=== PATIENT | female | born 1945 | race Caucasian/White ===

== ENCOUNTER 2018-02-10 10:22 | Outpatient (CLI) | payer MEDICARE, OTHER | END 2018-02-10 10:23 | disposition critical access hospital (66) | LOC: EMS 10:22 | PROVIDERS: ATTEND Surgery | DX: H53.8 Other visual disturbances (principal); R20.2 Paresthesia of skin | CPT/HCPCS: A0425; A0429 ==

== ENCOUNTER 2018-02-10 10:36 | Emergency (ER) | payer MEDICARE, OTHER ==
--- NOTE | 2018-02-10 11:18 | CT Report ---
Procedure Date: 02/10/2018 Accession Number: [id number] / [id number] Procedure: CT - Head W/O Stroke Protocol CPT Code: FULL RESULT: EXAM: CT HEAD EXAM DATE: 02/10/2018 11:06 AM. CLINICAL HISTORY: Right facial droop. COMPARISON: None. TECHNIQUE: Multiaxial CT images were obtained from the foramen magnum to the vertex. Reformats: Coronal IV contrast: None. In accordance with CT protocol optimization, one or more of the following dose reduction techniques were utilized for this exam: automated exposure control, adjustment of mA and/or KV based on patient size, or use of iterative reconstructive technique. FINDINGS: Parenchyma: No intraparenchymal hemorrhage. No evidence of mass, midline shift, or CT findings of acute infarction. Reeves-white differentiation is distinct. Extraaxial Spaces: Normal for age. No subdural or epidural collections identified. Ventricles: Normal in size and position. Sinuses and Orbits: Imaged paranasal sinuses, orbits, and mastoids show no significant abnormality. Bones: No evidence of fracture or calvarial defect. Other: None. IMPRESSION: Normal head CT. No intracranial hemorrhage, CT evidence of acute infarct, mass effect, or other acute abnormality. RADIA The above findings were discussed with Vaurn Mcbride by Dr. Rasheed Blue at 11:17 hrs on 02/10/18.
[2018-02-10 11:32] LABS: BASOPHILS % (AUTO) 0.2 %; EOSINOPHILS # (AUTO) 0.1 10^3/uL (0.0-0.7); HGB - HEMOGLOBIN 13.9 g/dL (12.0-16.0); LYMPHOCYTES # (AUTO) 1.5 10^3/uL (1.5-3.5); LYMPHOCYTES % (AUTO) 33.4 %; MEAN CORPUSCULAR HEMOGLOBIN 28.1 pg (27.0-31.0); MEAN CORPUSCULAR HGB CONC 33.9 g/dL (32.0-36.0); MEAN CORPUSCULAR VOLUME 82.9 fL (81.0-99.0); MEAN PLATELET VOLUME 9.1 fL (7.9-10.8); MONOCYTES # (AUTO) 0.5 10^3/uL (0.0-1.0); MONOCYTES % (AUTO) 11.1 %; NEUTROPHILS # (AUTO) 2.3 10^3/uL (1.5-6.6); NEUTROPHILS % (AUTO) 52.3 %; PLT - PLATELET COUNT 180 10^3/uL (130-450); RED BLOOD COUNT 4.93 10^6/uL (4.20-5.40); RED CELL DISTRIBUTION WIDTH 14.6 % (12.0-15.0); WHITE BLOOD COUNT 4.5 x10^3/uL (4.8-10.8)
[2018-02-10 11:45] LABS: ALBUMIN 3.8 g/dL (3.2-5.5); ALBUMIN/GLOBULIN RATIO 1.1 (1.0-2.2); BILIRUBIN,TOTAL 0.4 mg/dL (0.2-1.0); CALCIUM 9.1 mg/dL (8.5-10.3); CREATININE 0.7 mg/dL (0.4-1.0); TOTAL PROTEIN 7.2 g/dL (6.7-8.2)
--- NOTE | 2018-02-10 12:15 | ED Physician Documentation ---
PD HPI FOCAL NEURO - Stated complaint Stated Complaint: POSS CVA - Chief complaint Chief Complaint: Neuro - History obtained from History obtained from: Patient, Family - History of Present Illness Timing - onset: How many hours ago (< 1 hr.) Timing - duration: Minutes (lasted about 10 minutes.) Timing - details: Now resolved Severity of deficit: Mild Weakness: Face, Right Associated symptoms: No: Headache, Nausea / vomiting, Fever Baseline status: positive: A&OX3, ambulatory, indep Similar symptoms before: Has not had sx before - Treatment prior to arrival Treatment prior to arrival: The patient is a 72-year-old female who presents after she experienced droopiness of her right eye less than one hour prior to arrival, and lasting for about 10 minutes. She reports associated blurry vision. She felt "off" today prior to the onset of her symptoms. She denies any associated headache, fever, chest pain, shortness of breath, nausea or vomiting. She did feel generally weak. She denies history of similar symptoms in the past. Until 6 months ago she was treated for hypertension with Benicar 20 mg daily. The medication was stopped because of episodes with low blood pressure,and she currently does not take any medications. She is currently visiting from [place]. Her daughter lives on [facility]. Review of Systems Constitutional: denies: Fever, Myalgias Eyes: reports: Other (Transient blurriness of vision, with droopy right eye.) Ears: denies: Tinnitus/ringing Nose: denies: Congestion Throat: denies: Sore throat Cardiac: denies: Chest pain / pressure, Palpitations Respiratory: denies: Dyspnea, Cough GI: denies: Abdominal Pain, Nausea, Vomiting : denies: Dysuria Skin: denies: Rash Musculoskeletal: denies: Neck pain, Extremity swelling Neurologic: reports: Focal weakness (droopiness of right eye transiently.). denies: Numbness, Difficulty speaking, Headache PD PAST MEDICAL HISTORY - Past Medical History Cardiovascular: Hypertension Respiratory: Sleep apnea Psych: Anxiety, Panic attacks - Present Medications Home Medications: Ambulatory Orders Medication Instructions Recorded Confirmed Olmesartan Medoxomil [Benicar] 10 mg PO DAILY #60 tablet 02/10/18 - Allergies Allergies/Adverse Reactions: Allergies Allergy/AdvReac Type Severity Reaction Status Date / Time aspirin Allergy Edema Verified 02/10/18 10:43 Penicillins Allergy Hives Verified 02/10/18 10:43 - Social History Does the pt smoke?: No Smoking Status: Never smoker Does the pt drink ETOH?: No Does the pt have substance abuse?: No Additional Social History: Visiting here from [place]. 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, No motor deficit, No sensory deficit, Normal speech Eye Opening: Spontaneous Motor: Obeys Commands Verbal: Oriented GCS Score: 15 NIHSS - Level of Consciousness Level of consciousness: (0) Alert, Keenly responsive LOC Questions: (0) Answers both Q's correct LOC Commands: (0) Performs both correctly - Gaze Best Gaze: (0) Normal - Visual Visual: (0) No loss - Facial Palsy Facial Palsy: (0) Normal, symmetrical movement - Motor Arms (both separate) Motor Arm (right): (0) No drift Motor Arm (left): (0) No drift - Motor Legs (both separate) Motor Leg (right): (0) No drift Motor Leg (left): (0) No drift - Limb Ataxia Limb Ataxia: (0) Absent - Sensory Sensory: (0) Normal - Best Language Best Language: (0) No aphasia - Dysarthria Dysarthria: (0) Normal - Extinction and Inattention (formally neg Extinction and inattention: (0) No abnormality - Total Score/Results Total Score/Result: 0 Results - Vitals Vitals: Oxygen O2 Source Room air - EKG (time done) 11:16 Rate: Rate (enter#) (63) Rhythm: NSR [place]: Normal Intervals: Normal [place] QRS: Normal Ischemia: Normal ST segments Computer interpretation: Agree with computer - Labs Labs: Laboratory Tests 02/10/18 02/10/18 02/10/18 11:20 11:20 11:20 WBC 4.5 L RBC 4.93 Hgb 13.9 Hct 40.9 MCV 82.9 MCH 28.1 MCHC 33.9 RDW 14.6 Plt Count 180 MPV 9.1 Neut # (Auto) 2.3 Lymph # (Auto) 1.5 [place] # (Auto) 0.5 Eos # (Auto) 0.1 Baso # (Auto) 0.0 Absolute Nucleated RBC 0.00 Nucleated RBC % 0.0 Sodium 139 Potassium 4.1 Chloride 106 Carbon Dioxide 27 Anion Gap 6.0 BUN 19 Creatinine 0.7 Estimated GFR (MDRD) 83 L Glucose 110 H Calcium 9.1 Total Bilirubin 0.4 AST 18 ALT 18 Alkaline Phosphatase 66 Troponin I < 0.04 Total Protein 7.2 Albumin 3.8 Globulin 3.4 Albumin/Globulin Ratio 1.1 Lipase 27 - Rads (name of study) Head CT stroke protocol Radiology: Prelim report reviewed, EMP read contemporaneously, See rad report ( Normal head CT) carotid duplex Radiology: Prelim report reviewed, See rad report (Minimal to mild bilateral carotid artery plaquing. In the right carotid artery there are no elevated carotid artery velocities to suggest hemodynamically significant stenosis. In the left carotid artery there are no elevated carotid artery velocities to suggest hemodynamically significant stenosis. Normal antegrade flow is present in bilateral vertebral arteries.) PD MEDICAL DECISION MAKING - ED course Complexity details: reviewed results, re-evaluated patient, considered differential, d/w patient, d/w family ED course: The patient's presentation is consistent with brief transient ischemic attack, although that cannot be certain because her neurologic exam was completely normal at the time of her arrival in the emergency department. Her elevated blood pressure, which was 216 systolic when the paramedics first checked it, is consistent with TIA. However the transient visual blurring and right eye droopiness may have been caused by hypertensive urgency. Evaluation in the emergency department included head CT which was normal, followed by carotid duplex scan, which revealed no significant carotid stenoses. Her CBC and chemistry panel were unremarkable, and her EKG was normal. The patient has an allergy to aspirin, so aspirin was not administered. Her blood pressure improved while in the emergency department, and she remained asymptomatic. She is being discharged with prescription for Benicar at half the dosage she was previously prescribed. I discussed with her and her family the results of her workup, treatment with antihypertensive medication, outpatient follow-up, as well as potentially worrisome signs or symptoms that should prompt reevaluation in the emergency department. - Sepsis Event Vital Signs: Oxygen O2 Source Room air Departure - Departure Disposition: 01 Home, Self Care Clinical Impression: TIA (transient ischemic attack) Hypertension Qualifiers: Hypertension type: unspecified Qualified Code(s): I10 - Essential (primary) hypertension Condition: Stable Instructions: ED HTN Established, ED Transient Ischemic Attack Prescriptions: Olmesartan Medoxomil [Benicar] 10 mg PO DAILY #60 tablet Comments: Take Benicar daily as prescribed. Follow up with your primary physician upon return to [place]. Return to the emergency department if you develop recurrent neurologic deficit, progressive fatigue, increasing headache, persistent vomiting, or otherwise worsening symptoms Discharge Date/Time: 02/10/18 14:09
--- NOTE | 2018-02-10 13:18 | Ultrasound Report ---
Procedure Date: 02/10/2018 Accession Number: [id number] / [id number] Procedure: US - Carotid Doppler Complete CPT Code: FULL RESULT: EXAM: BILATERAL CAROTID AND VERTEBRAL ARTERY DUPLEX DOPPLER ULTRASOUND: EXAM DATE: 02/10/2018 01:06 PM CLINICAL HISTORY: Transient right facial droop. COMPARISON: None. TECHNIQUE: Grayscale imaging, color Doppler, and duplex spectral Doppler were used to evaluate the carotid and vertebral arteries bilaterally. Static images were obtained. FINDINGS: There is minimal to mild diffuse atherosclerotic disease involving bilateral carotid artery bifurcations. There is no significant elevation of the velocities or ratios to suggest significant stenosis. Normal antegrade flow is present in bilateral vertebral arteries. VELOCITIES (cm/sec): Right CCA mid: PSV 81 cm/sec CCA dist: PSV 80 cm/sec ICA prox: PSV 55 cm/sec, EDV 15 cm/sec ICA mid: PSV 82 cm/sec, EDV 18 cm/sec ICA dist: PSV 62 cm/sec, EDV 16 cm/sec ECA: PSV 86 cm/sec Vert: PSV 43 cm/sec ICA/CCA: 1.02 Left CCA mid: PSV 93 cm/sec CCA dist: PSV 88 cm/sec ICA prox: PSV 103 cm/sec, EDV 27 cm/sec ICA mid: PSV 97 cm/sec, EDV 22 cm/sec ICA dist: PSV 59 cm/sec, EDV 15 cm/sec ECA: PSV 82 cm/sec Vert: PSV 46 cm/sec ICA/CCA: 1.17 ICA diameter stenosis: Right: <50% by velocity and <70% by NASCET criteria. Left: <50% by velocity and <70% by NASCET criteria. IMPRESSION: 1. Minimal to mild bilateral carotid artery plaquing. 2. In the right carotid artery there are no elevated carotid artery velocities to suggest hemodynamically significant stenosis. 3. In the left carotid artery there are no elevated carotid artery velocities to suggest hemodynamically significant stenosis. 4. Normal antegrade flow is present in bilateral vertebral arteries. General Recommendations: Stenosis =50% ICA - Follow-up ultrasound 6-12 months Stenosis <50% ICA - High Risk Patient with plaque - Follow-up ultrasound 1-2 years Normal Study but High Risk Patient - Follow-up ultrasound 3-5 years Management recommendations and diagnostic criteria are based on current IAC endorsed standards in Carotid Artery Stenosis: Grayscale and Doppler Ultrasound Diagnosis. Validated velocity measurements with angiographic measurements and velocity criteria are extrapolated from diameter data as defined by the Society of Radiologists in Ultrasound Consensus Conference Radiology 2003; 229;340-346. RADIA
[2018-02-10 14:13] VITALS: BP 179/68
== END 2018-02-10 14:09 | disposition home or self-care (01) ==
LOC: ED 10:36
DX: G45.9 Transient cerebral ischemic attack, unspecified (principal); I10 Essential (primary) hypertension; R29.810 Facial weakness; H53.8 Other visual disturbances
CPT/HCPCS: 36415; 70450; 80053; 83690; 84484; 85025; 93005; 93880; 99284

== ENCOUNTER 2018-02-17 09:41 | Emergency (ER) | payer MEDICARE, OTHER ==
--- NOTE | 2018-02-17 10:53 | ED Physician Documentation ---
History of Present Illness - Stated complaint Stated Complaint: POSS HIGH BLOOD PRESSURE/FOLLOW UP - Chief complaint Chief Complaint: General - History obtained from History obtained from: Patient - History of Present Illness Timing: Last night - Additonal information Additional information: 72-year-old female who was seen in the emergency department for TIA symptoms with markedly elevated blood pressure has been started on Benicar and is in the emergency department this morning for reevaluation. She is visiting here from [place] and she would like to go home. Both her daughter and her are concerned that she may be at risk from the travel itself. The patient has been checking her blood pressure 4 times per day and in the middle of night when she checked that she had a systolic of 160. She is coming to the emergency department now for reevaluation. She is not having any other specific symptoms and all of the symptoms she was having previously when she had hypertensive urgency have resolved. She does indicate that she is under a fair amount of stress here taking care of a 1 and 4-year-old which is more than she is comfortable with. Review of Systems Constitutional: denies: Fever, Chills, Fatigue Eyes: denies: Decreased vision Ears: denies: Ear pain Nose: denies: Congestion Throat: denies: Sore throat Cardiac: denies: Chest pain / pressure, Palpitations Respiratory: denies: Dyspnea, Cough GI: denies: Nausea, Vomiting, Constipation, Diarrhea : denies: Dysuria, Frequency Skin: denies: Rash Musculoskeletal: denies: Neck pain, Back pain, Extremity pain Neurologic: denies: Generalized weakness, Focal weakness, Numbness PD PAST MEDICAL HISTORY - Past Medical History Cardiovascular: Hypertension Respiratory: Sleep apnea Psych: Anxiety, Panic attacks - Present Medications Home Medications: Ambulatory Orders Medication Instructions Recorded Confirmed Olmesartan Medoxomil [Benicar] 10 mg PO DAILY #60 tablet 02/10/18 - Allergies Allergies/Adverse Reactions: Allergies Allergy/AdvReac Type Severity Reaction Status Date / Time aspirin Allergy Edema Verified 02/17/18 09:49 Penicillins Allergy Hives Verified 02/17/18 09:49 - Social History Does the pt smoke?: No Smoking Status: Never smoker Does the pt drink ETOH?: No Does the pt have substance abuse?: No PD ED PE NORMAL - Vitals Vital signs reviewed: Yes (hypertensive systolic mild ) - General General: Alert and oriented X 3, No acute distress, Well developed/nourished - HEENT HEENT: Atraumatic, PERRL, EOMI, Ears normal, Moist mucous membranes, Pharynx benign, Dentition benign - Neck Neck: Supple, no meningeal sign, No bony TTP - Cardiac Cardiac: RRR, No murmur - Respiratory Respiratory: No respiratory distress, Clear bilaterally - Abdomen Abdomen: Soft, Non tender - Back Back: No CVA TTP, No spinal TTP - Derm Derm: Normal color, Warm and dry, No rash - Extremities Extremities: No deformity, No edema - Neuro Neuro: Alert and oriented X 3, 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, No motor deficit, No sensory deficit, Normal speech Eye Opening: Spontaneous Motor: Obeys Commands Verbal: Oriented GCS Score: 15 - Psych Psych: Normal mood, Normal affect Results - Vitals Vitals: Vital Signs - 24 hr 02/17/18 02/17/18 09:46 12:27 Temperature 36.8 C 36.8 C Heart Rate 62 61 Respiratory 16 20 Rate Blood Pressure 154/68 H 139/102 H O2 Saturation 96 98 Oxygen O2 Source Room air - Labs Labs: Laboratory Tests 02/17/18 02/17/18 02/17/18 11:05 11:05 11:05 WBC 3.9 L RBC 5.03 Hgb 14.4 Hct 41.9 MCV 83.2 MCH 28.6 MCHC 34.4 RDW 14.6 Plt Count 178 MPV 9.1 Neut # (Auto) 2.1 Lymph # (Auto) 1.2 L [place] # (Auto) 0.4 Eos # (Auto) 0.1 Baso # (Auto) 0.1 Absolute Nucleated RBC 0.00 Nucleated RBC % 0.1 Sodium 140 Potassium 4.2 Chloride 106 Carbon Dioxide 27 Anion Gap 7.0 BUN 14 Creatinine 0.7 Estimated GFR (MDRD) 83 L Glucose 109 H Calcium 9.4 Total Bilirubin 0.9 AST 22 ALT 20 Alkaline Phosphatase 63 Troponin I < 0.04 Total Protein 7.7 Albumin 4.1 Globulin 3.6 Albumin/Globulin Ratio 1.1 Lipase 30 Urine Color Urine Clarity Urine pH Ur Specific [place] Urine Protein Urine Glucose (UA) Urine Ketones Urine Occult Blood Urine Nitrite Urine Bilirubin Urine Urobilinogen Ur Leukocyte Esterase Ur Microscopic Review Urine Culture Comments 02/17/18 11:15 WBC RBC Hgb Hct MCV MCH MCHC RDW Plt Count MPV Neut # (Auto) Lymph # (Auto) [place] # (Auto) Eos # (Auto) Baso # (Auto) Absolute Nucleated RBC Nucleated RBC % Sodium Potassium Chloride Carbon Dioxide Anion Gap BUN Creatinine Estimated GFR (MDRD) Glucose Calcium Total Bilirubin AST ALT Alkaline Phosphatase Troponin I Total Protein Albumin Globulin Albumin/Globulin Ratio Lipase Urine Color YELLOW Urine Clarity CLEAR Urine pH 7.0 Ur Specific [place] <=1.005 Urine Protein NEGATIVE Urine Glucose (UA) NEGATIVE Urine Ketones NEGATIVE Urine Occult Blood NEGATIVE Urine Nitrite NEGATIVE Urine Bilirubin NEGATIVE Urine Urobilinogen 0.2 (NORMAL) Ur Leukocyte Esterase NEGATIVE Ur Microscopic Review NOT INDICATED Urine Culture Comments NOT INDICATED Procedures - IVC sono (time) 1050 Bedside IVC sono: IVC measures (cm) (1.72), IVC collapsed c insp (cm) (1.1), Euvolemia PD MEDICAL DECISION MAKING - ED course Complexity details: reviewed results, re-evaluated patient, considered differential, d/w patient, d/w family ED course: 72-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 She has been checking her blood pressure frequently and has come in with concerns. She appears to be checking her blood pressure too frequently. She was not found to be dehydrated, she has not found to have issues with her electrolytes, troponin nor urine. She is reassured and given advice to not check her blood pressure as frequently and to follow up with her PMD on return home. I do not see any contraindication to flying. - Sepsis Event Vital Signs: Vital Signs - 24 hr 02/17/18 02/17/18 09:46 12:27 Temperature 36.8 C 36.8 C Heart Rate 62 61 Respiratory 16 20 Rate Blood Pressure 154/68 H 139/102 H O2 Saturation 96 98 Oxygen O2 Source Room air Departure - Departure Disposition: 01 Home, Self Care Clinical Impression: Hypertension Qualifiers: Hypertension type: essential hypertension Qualified Code(s): I10 - Essential ( primary) hypertension Condition: Stable Instructions: ED HTN Established Follow-Up: Your, doctor [Other] Discharge Date/Time: 02/17/18 12:37
[2018-02-17 11:13] LABS: BASOPHILS # (AUTO) 0.1 10^3/uL (0.0-0.1); EOSINOPHILS # (AUTO) 0.1 10^3/uL (0.0-0.7); EOSINOPHILS % (AUTO) 2.1 %; HGB - HEMOGLOBIN 14.4 g/dL (12.0-16.0); LYMPHOCYTES # (AUTO) 1.2 10^3/uL (1.5-3.5); LYMPHOCYTES % (AUTO) 30.8 %; MEAN CORPUSCULAR HEMOGLOBIN 28.6 pg (27.0-31.0); MEAN CORPUSCULAR HGB CONC 34.4 g/dL (32.0-36.0); MEAN CORPUSCULAR VOLUME 83.2 fL (81.0-99.0); MEAN PLATELET VOLUME 9.1 fL (7.9-10.8); MONOCYTES # (AUTO) 0.4 10^3/uL (0.0-1.0); MONOCYTES % (AUTO) 11.3 %; NEUTROPHILS # (AUTO) 2.1 10^3/uL (1.5-6.6); NEUTROPHILS % (AUTO) 53.8 %; PLT - PLATELET COUNT 178 10^3/uL (130-450); RED BLOOD COUNT 5.03 10^6/uL (4.20-5.40); RED CELL DISTRIBUTION WIDTH 14.6 % (12.0-15.0); WHITE BLOOD COUNT 3.9 x10^3/uL (4.8-10.8)
[2018-02-17 11:25] LABS: ALBUMIN 4.1 g/dL (3.2-5.5); ALBUMIN/GLOBULIN RATIO 1.1 (1.0-2.2); BILIRUBIN,TOTAL 0.9 mg/dL (0.2-1.0); CALCIUM 9.4 mg/dL (8.5-10.3); CREATININE 0.7 mg/dL (0.4-1.0); TOTAL PROTEIN 7.7 g/dL (6.7-8.2)
[2018-02-17 11:39] LABS: BILIRUBIN,URINE NEGATIVE (NEGATIVE); GLUCOSE, URINE (UA) NEGATIVE (NEGATIVE); KETONES,URINE (UA) NEGATIVE (NEGATIVE); LEUKOCYTE ESTERASE, URINE NEGATIVE (NEGATIVE); NITRITE,URINE NEGATIVE (NEGATIVE); OCCULT BLOOD,URINE NEGATIVE (NEGATIVE); PROTEIN,URINE NEGATIVE (NEGATIVE); UROBILINOGEN,URINE 0.2 (NORMAL) E.U./dL (NORMAL)
[2018-02-17 11:51] LABS: CLARITY,URINE CLEAR (CLEAR)
[2018-02-17 12:28] VITALS: BP 139/102
== END 2018-02-17 12:37 | disposition home or self-care (01) ==
LOC: ED 09:41
DX: I10 Essential (primary) hypertension (principal)
CPT/HCPCS: 36415; 80053; 81001; 81003; 83690; 84484; 85025; 87086; 99283